=== PATIENT | female | born 1925 | race Caucasian/White ===

== ENCOUNTER 2016-09-04 10:42 | Outpatient (RCR) | payer MEDICARE, OTHER ==
--- OUTSIDE RECORDS SUMMARY | 2016-07-03 12:38 | XMS REPORT | Continuity of Care Document ---
Author Author [facility] Organization [facility] Address Unknown Phone Unavailable Care Team Providers Care Online Publisher Name Role Phone NAYANA MARTINEZ MD PCP Insurance Providers Payer Name Policy Number Subscriber Name Relationship [employer] Medicare [id number] Kera Reynolds 20 Self / Same As Patient [employer] [id number] Kera Reynolds 20 Self / Same As Patient Advance Directives Directive Response Recorded Date/Time Advance Directives Yes 01/03/13 9:15am Organ Donor Yes 01/03/13 9:15am Problems No problem information available. Medications Current Home Medications Medication Dose Units Route Directions Days/Qty Instructions Start Date Warfarin Sodium 5 Mg 5 Mg Oral Daily 04/02/11 Potassium Chloride 20 Meq 20 Meq Oral Daily 04/02/11 Furosemide 40 Mg 40 Mg Oral Daily 04/02/11 Aspirin 81 Mg 81 Mg Oral Daily 04/02/11 Pramipexole Di-Hcl 0.5 Mg 1 Mg Oral Daily 04/02/11 Hydroxyurea 500 Mg 1,000 Mg Oral M Thu, . 04/02/11 Hydroxyurea 500 Mg 500 Mg Oral Thu, , Sat,Sun , Thu, Thu Sat, Sun 04/02/11 [Diego Red Fish Oil] 600 Mg Oral Daily 04/02/11 Digoxin (Lanoxin) 125 Mcg 0.5 Each Oral Daily 12/31/12 Cholecalciferol 2,000 Unit 2,000 Unit Oral 12/31/12 Spironolactone 25 Mg 25 Mg Oral 12/31/12 Metoprolol Tartrate (Lopressor) 100 Mg 1 Each Oral Twice A Day 12/31 Past Home Medications Medication Directions Ordered Status Bisoprolol Fumarate/Hctz 1 Each Tablet, 1 Each Oral Daily 04/02/11 Discontinued Warfarin Sodium 2.5 Mg Tab, 2.5 Mg Oral Sututhsa@18 04/02/11 Discontinued Losartan Potassium 100 Mg Tablet, 100 Mg Oral Daily 04/02/11 Discontinued Estrogens Conjugated 0.625 Mg Tablet, 0.625 Mg Oral Daily 04/02/11 Discontinued [Diego Red Iron] , 1200 Mg Oral Twice A Day 04/02/11 Discontinued Ibandronate Sodium 150 Mg Tablet, 150 Mg Oral As Directed 04/02/11 Discontinued Amlodipine Besylate (Norvasc 5 Mg) 5 Mg Tablet, 5 Mg Oral Daily 04/02/11 Discontinued Social History Social History Problem Response Recorded Date/Time Recent Foreign Travel [place] 02/20/2016 9:25am Hospital Discharge Instructions Current inpatient/outpatient. Discharge instructions are currently unavailable. Plan of Care Prescriptions Functional Status No functional status results. Allergies, Adverse Reactions, Alerts Allergen Type Severity Reaction Status Last Updated Meperidine Adverse Reaction Mild NAUSEA Active 11/15/08 Immunizations No immunization records. Vital Signs No known vital signs results. Results Laboratory Results Test Name Result Units Flags Reference Collection Date/Time Result Date/ Time Comments White Blood Count 4.8 10^3/uL 4.3-11.0 04/23/2016 9:41am 04/23/2016 9: 48am Red Blood Count 3.51 10^6/uL L 4.35-5.85 04/23/2016 9:41am 04/23/2016 9: 48am Hemoglobin 12.2 G/DL 11.5-16.0 04/23/2016 9:41am 04/23/2016 9:48am Hematocrit 37 % 35-52 04/23/2016 9:41am 04/23/2016 9:48am Mean Corpuscular Volume 105 FL H 80-99 04/23/2016 9:41am 04/23/2016 9: 48am Mean Corpuscular Hemoglobin 35 PG H 25-34 04/23/2016 9:41am 04/23/2016 9: 48am Mean Corpuscular Hemoglobin Concent 33 G/DL 32-36 04/23/2016 9:41am 9:48am Red Cell Distribution Width 14.9 % H 10.0-14.5 04/23/2016 9:2015 9:48am Platelet Count 372 10^3/uL 130-400 04/23/2016 9:04/23/2016 9:48am Mean Platelet Volume 9.2 FL 7.4-10.4 04/23/2016 9:04/23/2016 9: 48am Neutrophils (%) (Auto) 76 % H 42-75 04/23/2016 9:04/23/2016 9:48am Lymphocytes (%) (Auto) 12 % 12-44 04/23/2016 9:04/23/2016 9:48am Monocytes (%) (Auto) 10 % 0-12 04/23/2016 9:04/23/2016 9:48am Eosinophils (%) (Auto) 2 % 0-10 04/23/2016 9:04/23/2016 9:48am Basophils (%) (Auto) 0 % 0-10 04/23/2016 9:04/23/2016 9:48am Neutrophils # (Auto) 3.6 X 10^3 1.8-7.8 04/23/2016 9:04/23/2016 9: 48am Lymphocytes # (Auto) 0.6 X 10^3 L 1.0-4.0 04/23/2016 9:04/23/2016 9: 48am Monocytes # (Auto) 0.5 X 10^3 0.0-1.0 04/23/2016 9:04/23/2016 9: 48am Eosinophils # (Auto) 0.1 10^3/uL 0.0-0.3 04/23/2016 9:04/23/2016 9 :48am Basophils # (Auto) 0.0 10^3/uL 0.0-0.1 04/23/2016 9:04/23/2016 9: 48am Sodium Level 132 MMOL/L L 135-145 04/23/2016 9:04/23/2016 11:42am Potassium Level 4.4 MMOL/L 3.6-5.0 04/23/2016 9:04/23/2016 11: 42am Chloride Level 100 MMOL/L 98-107 04/23/2016 9:04/23/2016 11:42am Carbon Dioxide Level 24 MMOL/L 21-32 04/23/2016 9:4104/23/2016 11: 42am Anion Gap 8 MMOL/L 5-14 04/23/2016 9:4104/23/2016 11:42am Blood Urea Nitrogen 19 MG/DL H 7-18 04/23/2016 9:41am 04/23/2016 11:42am Creatinine 1.03 MG/DL 0.60-1.30 04/23/2016 9:4104/23/2016 11:42am BUN/Creatinine Ratio 18 04/23/2016 9:4104/23/2016 11:42am Estimat Glomerular Filtration Rate 51 04/23/2016 9:4104/23/2016 11:42am GFR INTERPRETIVE DATA UNITS FOR ESTIMATED GFR (eGFR): mL/min/1.73 M2 REFERENCE RANGE FOR ESTIMATED GFR (eGFR) eGFR NORMAL eGFR >60 MODERATELY DECREASED eGFR 30-59 SEVERLY DECREASED eGFR 15-29 KIDNEY FAILURE <15 (OR DIALYSIS) Glucose Level 95 MG/DL 70-105 04/23/2016 9:4104/23/2016 11:42am Calcium Level 9.3 MG/DL 8.5-10.1 04/23/2016 9:4104/23/2016 11:42am Total Bilirubin 0.9 MG/DL 0.1-1.0 04/23/2016 9:41am 04/23/2016 11:42am Alkaline Phosphatase 90 U/L 40-136 04/23/2016 9:41am 04/23/2016 11: 42am Aspartate Amino Transf (AST/SGOT) 43 U/L H 5-34 04/23/2016 9:41am 2015 11:42am Alanine Aminotransferase (ALT/SGPT) 31 U/L 0-55 04/23/2016 9:4104/23 11:42am Lactate Dehydrogenase 315 U/L H 125-220 04/23/2016 9:4104/23/2016 11: 42am Total Protein 7.1 G/DL 6.4-8.2 04/23/2016 9:41am 04/23/2016 11:42am Albumin 4.1 G/DL 3.2-4.5 04/23/2016 9:41am 04/23/2016 11:42am Ghzy-9-Gggwkpllztuak 4.42 mg/L H 0.00-1.85 04/23/2016 9:41am 04/24/2016 8 :37am Test performed at [facility], CLIA# [id number] [address] [place] [address] Pending Laboratory Results Test Name Collection Date/Time Procedures No known history of procedures. Encounters Encounter Location Arrival/Admit Date Discharge/Depart Date Attending Provider Registered Clinic [facility] 04/23/16 9:45am NAYANA MARTINEZ MD Discharged Recurring [facility] 04/23/16 9:29am 11:59pm RELL COLEMAN MD
[2016-07-03 13:14] LABS: BASOPHILS % (AUTO) 0 % (0-10); EOSINOPHILS # (AUTO) 0.1 10^3/uL (0.0-0.3); EOSINOPHILS % (AUTO) 3 % (0-10); LYMPHOCYTES # (AUTO) 0.8 X 10^3 (1.0-4.0); LYMPHOCYTES % (AUTO) 19 % (12-44); MEAN CORPUSCULAR HEMOGLOBIN 36 PG (25-34); MEAN CORPUSCULAR HGB CONC 35 G/DL (32-36); MEAN CORPUSCULAR VOLUME 104 FL (80-99); MEAN PLATELET VOLUME 9.5 FL (7.4-10.4); MONOCYTES # (AUTO) 0.3 X 10^3 (0.0-1.0); MONOCYTES % (AUTO) 8 % (0-12); NEUTROPHILS # (AUTO) 2.9 X 10^3 (1.8-7.8); NEUTROPHILS % (AUTO) 70 % (42-75); PLATELET COUNT 381 10^3/uL (130-400); RED BLOOD COUNT 3.52 10^6/uL (4.35-5.85); RED CELL DISTRIBUTION WIDTH 15.7 % (10.0-14.5); WHITE BLOOD COUNT 4.2 10^3/uL (4.3-11.0)
[2016-07-03 13:35] LABS: ALBUMIN 4.2 G/DL (3.2-4.5); BILIRUBIN,TOTAL 0.8 MG/DL (0.1-1.0); CALCIUM 9.7 MG/DL (8.5-10.1); CREATININE SERUM 1.25 MG/DL (0.60-1.30); POTASSIUM 4.7 MMOL/L (3.6-5.0); TOTAL PROTEIN 7.5 G/DL (6.4-8.2)
[2016-09-04 10:58] LABS: BASOPHILS % (AUTO) 0 % (0-10); EOSINOPHILS # (AUTO) 0.2 10^3/uL (0.0-0.3); EOSINOPHILS % (AUTO) 3 % (0-10); LYMPHOCYTES # (AUTO) 0.7 X 10^3 (1.0-4.0); LYMPHOCYTES % (AUTO) 12 % (12-44); MEAN CORPUSCULAR HEMOGLOBIN 36 PG (25-34); MEAN CORPUSCULAR HGB CONC 34 G/DL (32-36); MEAN CORPUSCULAR VOLUME 107 FL (80-99); MEAN PLATELET VOLUME 9.3 FL (7.4-10.4); MONOCYTES # (AUTO) 0.4 X 10^3 (0.0-1.0); MONOCYTES % (AUTO) 8 % (0-12); NEUTROPHILS # (AUTO) 4.3 X 10^3 (1.8-7.8); NEUTROPHILS % (AUTO) 77 % (42-75); PLATELET COUNT 480 10^3/uL (130-400); RED BLOOD COUNT 3.44 10^6/uL (4.35-5.85); RED CELL DISTRIBUTION WIDTH 14.3 % (10.0-14.5); WHITE BLOOD COUNT 5.5 10^3/uL (4.3-11.0)
[2016-09-04 12:05] LABS: ALBUMIN 4.3 G/DL (3.2-4.5); BILIRUBIN,TOTAL 0.8 MG/DL (0.1-1.0); CALCIUM 9.7 MG/DL (8.5-10.1); CREATININE SERUM 0.93 MG/DL (0.60-1.30); POTASSIUM 4.7 MMOL/L (3.6-5.0); TOTAL PROTEIN 7.7 G/DL (6.4-8.2)
== END 2016-10-01 | disposition home or self-care (01) ==
LOC: ONC 10:42
PROVIDERS: ATTEND Internal Medicine Hematology & Oncology
DX: D69.49 Other primary thrombocytopenia (principal); I10 Essential (primary) hypertension; I48.91 Unspecified atrial fibrillation; Z95.2 Presence of prosthetic heart valve; Z79.01 Long term (current) use of anticoagulants; Z79.899 Other long term (current) drug therapy
CPT/HCPCS: 36415; 80053; 82232; 83615; 85025; 99213

== ENCOUNTER → 2016-09-04 | Outpatient (CLI) | payer MEDICARE, OTHER ==
[~2016-09-04] MED LIST: AMLO5TAB2 PO; ASP81TEC PO; BISO1TAB8 PO; CHOL2000 PO; DIGO125T PO; EST.625T PO; FRSM40T PO; HYDR500C PO; IBAN150T5 PO; LOSA100T7 PO; MEGA RED FISH OIL PO; METO100T2 PO; POTA20TA15 PO; PRAM0.5T4 PO; SPIR25TA3 PO; WRF2.5T PO; WRF5T PO; [UNRECOGNIZED DRUG - OTHER] PO
--- OUTSIDE RECORDS SUMMARY | 2016-09-04 11:00 | XMS REPORT | Continuity of Care Document ---
Author Author [facility] Organization [facility] Address Unknown Phone Unavailable Care Team Providers Care Interactive Media Marketing Director Name Role Phone NAYANA MARTINEZ MD PCP Insurance Providers Payer Name Policy Number Subscriber Name Relationship [employer] Medicare [id number] Kera Reynolds 20 Self / Same As Patient [employer] [id number] Kera Reynolds 20 Self / Same As [...] 4.1 G/DL 3.2-4.5 04/23/2016 9:41am 04/23/2016 11:42am Xcdu-0-Ntzqlogszmdnk 4.42 mg/L H 0.00-1.85 04/23/2016 9:41am 04/24/2016 8 :37am Test performed at [facility], CLIA# [id number] [address] [place] [address] Pending Laboratory Results Test Name Collection Date/Time Procedures No known history of procedures. Encounters Encounter Location Arrival/Admit Date Discharge/Depart Date Attending Provider Registered Clinic [facility] 04/23/16 9:45am NAYANA MARTINEZ MD Discharged Recurring [facility] 04/23/16 9:29am 11:59pm RELL COLEMAN MD
[2016-09-04 11:56] LABS: INR 1.4 (0.8-1.4); PROTHROMBIN TIME PATIENT 16.6 SEC (12.2-14.7)
== END ==
LOC: LAB 10:56
PROVIDERS: ATTEND Family Medicine
DX: I48.91 Unspecified atrial fibrillation (principal)
CPT/HCPCS: 36415; 85610

== ENCOUNTER 2017-01-06 09:40 | Outpatient (RCR) | payer MEDICARE, OTHER ==
[2016-11-12 10:10] LABS: BASOPHILS % (AUTO) 0 % (0-10); EOSINOPHILS # (AUTO) 0.2 10^3/uL (0.0-0.3); EOSINOPHILS % (AUTO) 5 % (0-10); LYMPHOCYTES # (AUTO) 0.4 X 10^3 (1.0-4.0); LYMPHOCYTES % (AUTO) 12 % (12-44); MEAN CORPUSCULAR HEMOGLOBIN 35 PG (25-34); MEAN CORPUSCULAR HGB CONC 34 G/DL (32-36); MEAN CORPUSCULAR VOLUME 104 FL (80-99); MEAN PLATELET VOLUME 9.4 FL (7.4-10.4); MONOCYTES # (AUTO) 0.4 X 10^3 (0.0-1.0); MONOCYTES % (AUTO) 11 % (0-12); NEUTROPHILS # (AUTO) 2.7 X 10^3 (1.8-7.8); NEUTROPHILS % (AUTO) 73 % (42-75); PLATELET COUNT 407 10^3/uL (130-400); RED BLOOD COUNT 3.55 10^6/uL (4.35-5.85); RED CELL DISTRIBUTION WIDTH 14.8 % (10.0-14.5); WHITE BLOOD COUNT 3.8 10^3/uL (4.3-11.0)
[2016-11-12 10:32] LABS: INR 1.8 (0.8-1.4); PROTHROMBIN TIME PATIENT 20.4 SEC (12.2-14.7)
[2016-11-12 10:42] LABS: ALBUMIN 4.1 G/DL (3.2-4.5); BILIRUBIN,TOTAL 0.9 MG/DL (0.1-1.0); CALCIUM 9.1 MG/DL (8.5-10.1); CREATININE SERUM 1.04 MG/DL (0.60-1.30); TOTAL PROTEIN 7.2 G/DL (6.4-8.2)
[2017-01-06 09:58] LABS: BASOPHILS % (AUTO) 0 % (0-10); EOSINOPHILS # (AUTO) 0.1 10^3/uL (0.0-0.3); EOSINOPHILS % (AUTO) 2 % (0-10); LYMPHOCYTES # (AUTO) 0.7 X 10^3 (1.0-4.0); LYMPHOCYTES % (AUTO) 14 % (12-44); MEAN CORPUSCULAR HEMOGLOBIN 36 PG (25-34); MEAN CORPUSCULAR HGB CONC 35 G/DL (32-36); MEAN CORPUSCULAR VOLUME 104 FL (80-99); MEAN PLATELET VOLUME 9.2 FL (7.4-10.4); MONOCYTES # (AUTO) 0.6 X 10^3 (0.0-1.0); MONOCYTES % (AUTO) 14 % (0-12); NEUTROPHILS # (AUTO) 3.2 X 10^3 (1.8-7.8); NEUTROPHILS % (AUTO) 70 % (42-75); PLATELET COUNT 334 10^3/uL (130-400); RED BLOOD COUNT 3.42 10^6/uL (4.35-5.85); RED CELL DISTRIBUTION WIDTH 15.1 % (10.0-14.5); WHITE BLOOD COUNT 4.6 10^3/uL (4.3-11.0)
[2017-01-06 10:41] LABS: ALBUMIN 4.1 G/DL (3.2-4.5); CALCIUM 9.2 MG/DL (8.5-10.1); CREATININE SERUM 0.98 MG/DL (0.60-1.30); POTASSIUM 5.8 MMOL/L (3.6-5.0); TOTAL PROTEIN 7.2 G/DL (6.4-8.2)
== END 2017-02-10 | disposition home or self-care (01) ==
LOC: ONC 09:40
PROVIDERS: ATTEND Internal Medicine Hematology & Oncology
DX: D47.3 Essential (hemorrhagic) thrombocythemia (principal); I11.0 Hypertensive heart disease with heart failure; I50.22 Chronic systolic (congestive) heart failure; I48.0 Paroxysmal atrial fibrillation; E87.1 Hypo-osmolality and hyponatremia; E87.5 Hyperkalemia; B02.9 Zoster without complications; Z95.2 Presence of prosthetic heart valve; Z79.01 Long term (current) use of anticoagulants; Z79.899 Other long term (current) drug therapy
CPT/HCPCS: 36415; 80053; 83615; 85025; 85610; 99213

== ENCOUNTER 2017-03-03 14:31 | Outpatient (RCR) | payer MEDICARE, OTHER ==
[2017-03-03 14:45] LABS: BASOPHILS % (AUTO) 0 % (0-10); EOSINOPHILS # (AUTO) 0.2 10^3/uL (0.0-0.3); EOSINOPHILS % (AUTO) 3 % (0-10); LYMPHOCYTES # (AUTO) 0.7 X 10^3 (1.0-4.0); LYMPHOCYTES % (AUTO) 14 % (12-44); MEAN CORPUSCULAR HEMOGLOBIN 36 PG (25-34); MEAN CORPUSCULAR HGB CONC 34 G/DL (32-36); MEAN CORPUSCULAR VOLUME 103 FL (80-99); MEAN PLATELET VOLUME 9.7 FL (7.4-10.4); MONOCYTES # (AUTO) 0.5 X 10^3 (0.0-1.0); MONOCYTES % (AUTO) 9 % (0-12); NEUTROPHILS # (AUTO) 3.9 X 10^3 (1.8-7.8); NEUTROPHILS % (AUTO) 74 % (42-75); PLATELET COUNT 436 10^3/uL (130-400); RED BLOOD COUNT 3.41 10^6/uL (4.35-5.85); RED CELL DISTRIBUTION WIDTH 14.4 % (10.0-14.5); WHITE BLOOD COUNT 5.3 10^3/uL (4.3-11.0)
[2017-03-03 15:00] LABS: ALANINE AMINOTRANSFERASE 20 U/L (0-55); ANION GAP 7 MMOL/L (5-14); ASPARTATE AMINO TRANSFERASE 30 U/L (5-34); BILIRUBIN,TOTAL 0.7 MG/DL (0.1-1.0); BLOOD UREA NITROGEN 18 MG/DL (7-18); BUN/CREATININE RATIO 21; CALCIUM 9.2 MG/DL (8.5-10.1); CARBON DIOXIDE 24 MMOL/L (21-32); CHLORIDE 103 MMOL/L (98-107); CREATININE SERUM 0.86 MG/DL (0.60-1.30); GFR ESTIMATED > 60; GLUCOSE 90 MG/DL (70-105); LACTATE DEHYDROGENASE 255 U/L (125-220); POTASSIUM 4.4 MMOL/L (3.6-5.0); SODIUM 134 MMOL/L (135-145); TOTAL PROTEIN 7.3 GM/DL (6.4-8.2)
[2017-03-03 15:23] LABS: THYROID STIMULATING HORMONE 1.39 UIU/ML (0.35-4.94)
[2017-03-04 07:40] LABS: IMMUNOGLOBULIN IGA 198 mg/dL (71-263); IMMUNOGLOBULIN IGG 1214 mg/dL (672-1680)
[2017-03-04 08:32] LABS: IMMUNOGLOBULIN IGM 279 mg/dL (47-209)
[2017-05-13] MEDS ORDERED: MELA1TAB8 PO (08:38)
[2017-05-13] MEDS ORDERED: ENAL2.5T PO (08:38)
[2017-05-13] MEDS ORDERED: CARB15DR3 OU (08:38)
[2017-05-13] MEDS ORDERED: HYDR500C2 PO ×2 (08:38)
[2017-05-13] MEDS ORDERED: [UNRECOGNIZED DRUG - OTHER] PO (08:38)
[2017-05-13] MEDS ORDERED: ARCTIC RUBY OIL PO (08:38)
[2017-05-13] MEDS ORDERED: METO-274 PO (08:38)
[2017-05-13] MEDS ORDERED: MAGN400T6 PO (08:38)
[2017-05-13] MEDS ORDERED: PRAM1TAB2 PO (08:38)
[2017-05-13] MEDS ORDERED: ASPI-983 PO (08:38)
[2017-05-13] MEDS ORDERED: NITR0.4T SL (08:38)
[2017-05-13] MEDS ORDERED: DIGO125T PO (08:38)
[2017-05-13] MEDS ORDERED: CALC100T2 PO (08:38)
[2017-05-13] MEDS ORDERED: FURO40TA4 PO (08:38)
[2017-05-13] MEDS ORDERED: SPIR25TA PO (08:38)
[2017-05-13] MEDS ORDERED: WARF-48 PO ×2 (08:38)
[2017-05-13] MEDS ORDERED: PHEN95TA30 PO (08:38)
== END 2017-05-12 11:01 | disposition home or self-care (01) ==
LOC: ONC 14:31
PROVIDERS: ATTEND Internal Medicine Hematology & Oncology
DX: D47.3 Essential (hemorrhagic) thrombocythemia (principal); I11.0 Hypertensive heart disease with heart failure; I50.22 Chronic systolic (congestive) heart failure; I48.0 Paroxysmal atrial fibrillation; E87.1 Hypo-osmolality and hyponatremia; E87.5 Hyperkalemia; B02.9 Zoster without complications; Z95.2 Presence of prosthetic heart valve; Z79.01 Long term (current) use of anticoagulants; Z79.899 Other long term (current) drug therapy
CPT/HCPCS: 36415; 80053; 82784; 83615; 84439; 84443; 85025; 99213

== ENCOUNTER → 2017-04-01 | Outpatient (CLI) | payer MEDICARE, OTHER ==
[~2017-04-01] MED LIST changes: +CATHETER FLUSH 10 ML SYR IV PRN; +REGADENOSON 0.4 MG/5 ML SYR (LEXISCAN) IV ONE
== END ==
LOC: CARD 09:30
PROVIDERS: ATTEND Physician Assistant
DX: E78.2 Mixed hyperlipidemia (principal); I10 Essential (primary) hypertension; I48.0 Paroxysmal atrial fibrillation; I49.5 Sick sinus syndrome; I08.1 Rheumatic disorders of both mitral and tricuspid valves
CPT/HCPCS: 93306

== ENCOUNTER → 2017-04-29 | Outpatient (CLI) | payer MEDICARE, OTHER ==
[~2017-04-29] MED LIST changes: +ARCTIC RUBY OIL PO; +ASPI-983 PO; +CALC100T2 PO; +CARB15DR3 OU; +ENAL2.5T PO; +FURO40TA4 PO; +HYDR500C2 PO; +MAGN400T6 PO; +MELA1TAB8 PO; +METO-395 PO; +NITR0.4T SL; +PHEN95TA30 PO; +PRAM1TAB2 PO; +SPIR25TA PO; +WARF-48 PO; +[UNRECOGNIZED DRUG - OTHER] PO
[2017-04-29 13:38] VITALS: BP 156/79
--- NOTE | 2017-04-30 09:26 | STRESS TEST ---
DATE OF SERVICE: 04/29/2017 LEXISCAN MYOVIEW STRESS TEST REPORT: REFERRING PHYSICIAN: Dr. Fernanda Eng. Baseline heart rate is 72. Baseline blood pressure 156/79. Baseline EKG is atrial fibrillation with no ischemic changes. In summary, the patient was injected with 10.85 mCi of technetium-99 Myoview and the resting images were obtained. Then, the patient received 0.4 mg of Lexiscan followed by 30.7 mCi of technetium-99 Myoview. Throughout the test, there were no EKG changes. The resting and stress images were reviewed and compared in the short axis, horizontal long axis, and vertical long axis views. Review of the images showed breast attenuation affecting the quality of the images, there is mild decreased uptake at the mid to apical anterior wall with subtle reversibility. SSS is 5, SDS 5, TID value 1.01. On the gated images, the left ventricle appeared to be normal size with normal contractility, calculated ejection fraction 80%. CONCLUSION: 1. The patient tolerated Lexiscan well. 2. Breast attenuation affecting the quality of the images with questionable mild ischemia involving the mid to apical anterior wall and anterolateral wall. 3. Normal left ventricular size with normal contractility, calculated ejection fraction 80%. Job ID: [id number] DocumentID: [id number] Dictated Date: 04/29/2017 16:01:11 Tour Guide Date: 04/29/2017 17:13:32 Dictated By: BETTY RIVERA MD
== END ==
LOC: CARD 11:16
PROVIDERS: ATTEND Physician Assistant
DX: E78.2 Mixed hyperlipidemia (principal); I10 Essential (primary) hypertension; I48.0 Paroxysmal atrial fibrillation; I49.5 Sick sinus syndrome
CPT/HCPCS: 78452; 93017

== ENCOUNTER 2017-05-12 12:22 | Outpatient (RCR) | payer MEDICARE, OTHER ==
[~2017-05-12 12:22] MED LIST changes: -ARCTIC RUBY OIL PO; -ASPI-983 PO; -CALC100T2 PO; -CARB15DR3 OU; -CATHETER FLUSH 10 ML SYR IV PRN; -ENAL2.5T PO; -FURO40TA4 PO; -HYDR500C2 PO; -MAGN400T6 PO; -MELA1TAB8 PO; -METO-395 PO; -NITR0.4T SL; -PHEN95TA30 PO; -PRAM1TAB2 PO; -REGADENOSON 0.4 MG/5 ML SYR (LEXISCAN) IV ONE; -SPIR25TA PO; -WARF-48 PO; -[UNRECOGNIZED DRUG - OTHER] PO
[2017-05-12 13:07] LABS: BASOPHILS % (AUTO) 0 % (0-10); EOSINOPHILS # (AUTO) 0.1 10^3/uL (0.0-0.3); EOSINOPHILS % (AUTO) 2 % (0-10); LYMPHOCYTES # (AUTO) 0.7 X 10^3 (1.0-4.0); LYMPHOCYTES % (AUTO) 14 % (12-44); MEAN CORPUSCULAR HEMOGLOBIN 34 PG (25-34); MEAN CORPUSCULAR HGB CONC 33 G/DL (32-36); MEAN CORPUSCULAR VOLUME 105 FL (80-99); MEAN PLATELET VOLUME 9.4 FL (7.4-10.4); MONOCYTES # (AUTO) 0.5 X 10^3 (0.0-1.0); MONOCYTES % (AUTO) 8 % (0-12); NEUTROPHILS # (AUTO) 4.1 X 10^3 (1.8-7.8); NEUTROPHILS % (AUTO) 76 % (42-75); PLATELET COUNT 464 10^3/uL (130-400); RED BLOOD COUNT 3.31 10^6/uL (4.35-5.85); RED CELL DISTRIBUTION WIDTH 14.5 % (10.0-14.5); WHITE BLOOD COUNT 5.4 10^3/uL (4.3-11.0)
[2017-05-12 13:53] LABS: ALANINE AMINOTRANSFERASE 21 U/L (0-55); ALBUMIN 3.9 GM/DL (3.2-4.5); ANION GAP 9 MMOL/L (5-14); ASPARTATE AMINO TRANSFERASE 32 U/L (5-34); BILIRUBIN,TOTAL 0.8 MG/DL (0.1-1.0); BLOOD UREA NITROGEN 17 MG/DL (7-18); BUN/CREATININE RATIO 20; CALCIUM 9.1 MG/DL (8.5-10.1); CARBON DIOXIDE 25 MMOL/L (21-32); CHLORIDE 98 MMOL/L (98-107); CREATININE SERUM 0.83 MG/DL (0.60-1.30); GFR ESTIMATED > 60; GLUCOSE 112 MG/DL (70-105); LACTATE DEHYDROGENASE 241 U/L (125-220); POTASSIUM 3.9 MMOL/L (3.6-5.0); SODIUM 132 MMOL/L (135-145); TOTAL PROTEIN 6.6 GM/DL (6.4-8.2)
[2017-05-13] MEDS ORDERED: ENAL2.5T PO (08:38)
[2017-05-13] MEDS ORDERED: HYDR500C2 PO ×2 (08:38)
[2017-05-13] MEDS ORDERED: PHEN95TA30 PO (08:38)
[2017-05-13] MEDS ORDERED: CARB15DR3 OU (08:38)
[2017-05-13] MEDS ORDERED: DIGO125T PO (08:38)
[2017-05-13] MEDS ORDERED: MAGN400T6 PO (08:38)
[2017-05-13] MEDS ORDERED: SPIR25TA PO (08:38)
[2017-05-13] MEDS ORDERED: ARCTIC RUBY OIL PO (08:38)
[2017-05-13] MEDS ORDERED: CALC100T2 PO (08:38)
[2017-05-13] MEDS ORDERED: PRAM1TAB2 PO (08:38)
[2017-05-13] MEDS ORDERED: MELA1TAB8 PO (08:38)
[2017-05-13] MEDS ORDERED: METO-274 PO (08:38)
[2017-05-13] MEDS ORDERED: FURO40TA4 PO (08:38)
[2017-05-13] MEDS ORDERED: WARF-48 PO ×2 (08:38)
[2017-05-13] MEDS ORDERED: ASPI-983 PO (08:38)
[2017-05-13] MEDS ORDERED: [UNRECOGNIZED DRUG - OTHER] PO (08:38)
[2017-05-13] MEDS ORDERED: NITR0.4T SL (08:38)
== END 2017-05-20 10:03 | disposition home or self-care (01) ==
LOC: ONC 12:22
PROVIDERS: ATTEND Internal Medicine Hematology & Oncology
DX: D47.3 Essential (hemorrhagic) thrombocythemia (principal); I11.0 Hypertensive heart disease with heart failure; I50.22 Chronic systolic (congestive) heart failure; I48.0 Paroxysmal atrial fibrillation; E87.1 Hypo-osmolality and hyponatremia; E87.5 Hyperkalemia; B02.9 Zoster without complications; Z95.2 Presence of prosthetic heart valve; Z79.01 Long term (current) use of anticoagulants; Z79.899 Other long term (current) drug therapy
CPT/HCPCS: 36415; 80053; 83615; 85025; 99213

== ENCOUNTER 2017-05-13 06:52 | Day surgery (SDC) | payer MEDICARE, OTHER ==
[2017-05-13] VITALS (10 sets, daily range): BP systolic 110–170; BP diastolic 63–82
[~2017-05-13] VITALS: Ht 172.7 cm; Wt 65.8 kg
[2017-05-13] MEDS ORDERED: NS IV 1000 ML 1,000 ML ONE (06:53)
[2017-05-13] MEDS ORDERED: HEParin (CATH LAB) 2,000 ML IV ONE (06:53)
--- OUTSIDE RECORDS SUMMARY | 2017-05-13 06:58 | XMS REPORT | Continuity of Care Document ---
Author Author [facility] Address Unknown Phone Unavailable Allergies Active Description Code Type Severity Reaction Onset Reported/Identified Relationship to Patient Clinical Status Yes meperidine [id number] Drug Allergy Mild NAUSEA 11/15/2008 Medications Problems Date Dx Coded Attending Type Code Diagnosis Diagnosed By 04/02/2011 Ot 272.4 04/02/2011 Ot 397.0 04/02/2011 Ot 401.9 04/02/2011 Ot 424.0 04/02/2011 Ot 427.81 04/02/2011 Ot 786.09 04/02/2011 Ot 794.30 04/02/2011 Ot V45.01 09/14/2012 Ot 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 THROMBOCYTHEMIA 09/14/2012 Ot V58.61 ANTICOAGULANTS,LT,CURRENT USE 01/11/2013 RELL COLEMAN MD Ot 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 THROMBOCYTHEMIA 01/11/2013 RELL COLEMAN MD Ot 401.9 HYPERTENSION NOS 01/11/2013 RELL COLEMAN MD Ot 424.0 MITRAL VALVE DISORDER 01/11/2013 RELL COLEMAN MD Ot 427.31 ATRIAL FIBRILLATION 01/11/2013 RELL COLEMAN MD Ot V58.61 ANTICOAGULANTS,LT,CURRENT USE 01/11/2013 RELL COLEMAN MD Ot V58.69 OTH MED,LT,CURRENT USE 05/31/2013 RELL COLEMAN MD Ot 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 THROMBOCYTHEMIA 05/31/2013 RELL COLEMAN MD Ot 401.9 HYPERTENSION NOS 05/31/2013 RELL COLEMAN MD Ot 424.0 MITRAL VALVE DISORDER 05/31/2013 RELL COLEMAN MD Ot 427.31 ATRIAL FIBRILLATION 05/31/2013 RELL COLEMAN MD Ot V58.61 ANTICOAGULANTS,LT,CURRENT USE 05/31/2013 RELL COLEMAN MD Ot V58.69 OTH MED,LT,CURRENT USE 10/03/2013 RELL COLEMAN MD Ot 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 THROMBOCYTHEMIA 10/03/2013 RELL COLEMAN MD Ot 401.9 HYPERTENSION NOS 10/03/2013 [place] MD, RELL K Ot 424.0 MITRAL VALVE DISORDER 10/03/2013 RELL COLEMAN MD Ot 427.31 ATRIAL FIBRILLATION 10/03/2013 RELL COLEMAN MD Ot V58.61 ANTICOAGULANTS,LT,CURRENT USE 10/03/2013 RELL COLEMAN MD Ot V58.69 OTH MED,LT,CURRENT USE 02/22/2014 RELL COLEMAN MD Ot 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 THROMBOCYTHEMIA 02/22/2014 RELL COLEMAN MD Ot 401.9 HYPERTENSION NOS 02/22/2014 RELL COLEMAN MD Ot 424.0 MITRAL VALVE DISORDER 02/22/2014 RELL COLEMAN MD Ot 427.31 ATRIAL FIBRILLATION 02/22/2014 RELL COLEMAN MD Ot V58.61 ANTICOAGULANTS,LT,CURRENT USE 02/22/2014 RELL COLEMAN MD Ot V58.69 OTH MED,LT,CURRENT USE 06/20/2014 RELL COLEMAN MD Ot 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 THROMBOCYTHEMIA 06/20/2014 RELL COLEMAN MD Ot 401.9 HYPERTENSION NOS 06/20/2014 RELL COLEMAN MD Ot 424.0 MITRAL VALVE DISORDER 06/20/2014 RELL COLEMAN MD Ot 427.31 ATRIAL FIBRILLATION 06/20/2014 RELL COLEMAN MD Ot V58.61 ANTICOAGULANTS,LT,CURRENT USE 06/20/2014 RELL COLEMAN MD Ot V58.69 OTH MED,LT,CURRENT USE 07/18/2014 RELL COLEMAN MD Ot 238.71 07/18/2014 RELL COLEMAN MD Ot 401.9 07/18/2014 RELL COLEMAN MD Ot 424.0 07/18/2014 RELL COLEMAN MD Ot 427.31 07/18/2014 RELL COLEMAN MD Ot V58.61 07/18/2014 [place] LEGGETT, RELL K Ot V58.69 07/19/2014 RELL COLEMAN MD K Ot 238.71 07/19/2014 [place] LEGGETT, RELL Abernathy Ot 401.9 07/19/2014 RELL COLEMAN MD Ot 424.0 07/19/2014 RELL COLEMAN MD Ot 427.31 07/19/2014 [place] LEGGETT, RELL K Ot V58.61 07/19/2014 [place] LEGGETT, RELL Abernathy Ot V58.69 08/23/2014 [place] LEGGETT, RELL K Ot 238.71 08/23/2014 RELL COLEMAN MD Ot 401.9 08/23/2014 RELL COLEMAN MD K Ot 424.0 08/23/2014 [place] LEGGETT, RELL Abernathy Ot 427.31 08/23/2014 [place] LEGGETT, RELL Abernathy Ot V58.61 08/23/2014 [place] LEGGETT, RELL Abernathy Ot V58.69 09/13/2014 JUAN LEGGETT, NAYANA Santana Ot V58.61 09/13/2014 JUAN LEGGETT, NAYANA A Ot V58.83 09/13/2014 Ot V76.12 09/13/2014 Ot V76.12 09/13/2014 Ot 238.71 09/13/2014 Ot 401.9 09/13/2014 Ot 427.31 09/13/2014 Ot V58.61 09/13/2014 Ot V58.66 09/13/2014 Ot V58.69 09/13/2014 Ot 238.71 09/13/2014 Ot 238.71 09/13/2014 Ot 401.9 09/13/2014 Ot 427.31 09/13/2014 Ot V58.61 09/13/2014 Ot V58.69 09/13/2014 Ot 427.31 09/13/2014 Ot V58.61 09/13/2014 Ot 238.71 09/13/2014 Ot 401.9 09/13/2014 Ot 427.31 09/13/2014 Ot V58.61 09/13/2014 Ot V58.69 09/13/2014 Ot 238.71 09/13/2014 Ot 401.9 09/13/2014 Ot 427.31 09/13/2014 Ot V58.61 09/13/2014 Ot V58.69 09/13/2014 Ot 238.71 09/13/2014 Ot 401.9 09/13/2014 Ot 427.31 09/13/2014 Ot V58.61 09/13/2014 Ot V58.69 09/13/2014 Ot 397.0 09/13/2014 Ot 401.9 09/13/2014 Ot 416.8 09/13/2014 Ot 424.0 09/13/2014 Ot 786.09 09/13/2014 Ot 238.71 09/13/2014 Ot 401.9 09/13/2014 Ot 427.31 09/13/2014 Ot V58.61 09/13/2014 Ot V58.69 09/13/2014 Ot 238.71 09/13/2014 Ot 401.9 09/13/2014 Ot 427.31 09/13/2014 Ot V58.69 09/13/2014 Ot 238.71 09/13/2014 Ot 424.0 09/13/2014 Ot 427.31 09/13/2014 Ot V58.61 09/13/2014 Ot V58.69 09/13/2014 Ot 238.71 09/13/2014 Ot 401.9 09/13/2014 Ot 424.0 09/13/2014 Ot 427.31 09/13/2014 Ot V04.81 09/13/2014 Ot V58.61 09/13/2014 Ot V58.69 09/13/2014 Ot 238.71 09/13/2014 Ot 401.9 09/13/2014 Ot 424.0 09/13/2014 Ot 427.31 09/13/2014 Ot V58.61 09/13/2014 Ot V58.69 09/13/2014 Ot 238.71 09/13/2014 Ot 401.9 09/13/2014 Ot 424.0 09/13/2014 Ot 427.31 09/13/2014 Ot V58.61 09/13/2014 Ot V58.69 09/13/2014 Ot 238.71 09/13/2014 Ot 401.9 09/13/2014 Ot 424.0 09/13/2014 Ot 427.31 09/13/2014 Ot V58.61 09/13/2014 Ot V58.69 09/13/2014 Ot 396.3 09/13/2014 Ot 397.0 09/13/2014 Ot 401.9 09/13/2014 Ot 238.71 09/13/2014 Ot 401.9 09/13/2014 Ot 424.0 09/13/2014 Ot 427.31 09/13/2014 Ot V58.61 09/13/2014 Ot V58.69 09/13/2014 Ot 427.31 09/13/2014 Ot 238.71 09/13/2014 Ot 401.9 09/13/2014 Ot 424.0 09/13/2014 Ot 427.31 09/13/2014 Ot V58.61 09/13/2014 Ot V58.69 09/13/2014 Ot 397.0 09/13/2014 Ot 424.0 09/13/2014 Ot 428.0 09/13/2014 Ot V45.01 09/13/2014 Ot 427.31 09/13/2014 BETH ALEXANDER Ot 397.0 09/13/2014 DYLAN RESTREPO, BETH K Ot 424.0 09/13/2014 DYLAN PA, BETH K Ot 427.31 09/13/2014 DYLAN PA, BETH K Ot 428.0 09/13/2014 DYLAN PA, BETH K Ot 786.09 09/13/2014 DYLAN PA, BETH K Ot V45.01 09/13/2014 JUAN LEGGETT, NAYANA Santana Ot 427.31 09/13/2014 [place] LEGGETT, RELL Abernathy Ot 238.71 09/13/2014 [place] LEGGETT, RELL Abernathy Ot 401.9 09/13/2014 [place] LEGGETT, RELL Abernathy Ot 424.0 09/13/2014 [place] LEGGETT, RELL Abernathy Ot 427.31 09/13/2014 [place] LEGGETT, RELL Abernathy Ot V58.61 09/13/2014 [place] LEGGETT, RELL Abernathy Ot V58.69 09/13/2014 JUAN LEGGETT, NAYANA A Ot V58.61 09/13/2014 JUAN LEGGETT, NAYANA A Ot V58.83 09/13/2014 JUAN LEGGETT, NAYANA A Ot V58.61 09/13/2014 JUAN LEGGETT, NAYANA A Ot V58.83 09/13/2014 JUAN LEGGETT, NAYANA A Ot V58.61 09/13/2014 JUAN LEGGETT, NAYANA A Ot V58.83 10/03/2014 JUAN LEGGETT, NAYANA A Ot V58.61 10/03/2014 JUAN LEGGETT, NAYANA A Ot V58.83 10/16/2014 [place] LEGGETT, RELL Abernathy Ot 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 THROMBOCYTHEMIA 10/16/2014 [place] LEGGETT, RELL Abernathy Ot 401.9 HYPERTENSION NOS 10/16/2014 [place] LEGGETT, RELL Abernathy Ot 424.0 MITRAL VALVE DISORDER 10/16/2014 [place] LEGGETT, RELL Abernathy Ot 427.31 ATRIAL FIBRILLATION 10/16/2014 [place] LEGGETT, RELL Abernathy Ot V58.61 ANTICOAGULANTS,LT,CURRENT USE 10/16/2014 [place] LEGGETT, RELL Abernathy Ot V58.69 OTH MED,LT,CURRENT USE 01/12/2015 [place] LEGGETT, RELL Abernathy Ot 238.71 01/12/2015 [place] LEGGETT, RELL Abernathy Ot 401.9 01/12/2015 [place] LEGGETT, RELL Abernathy Ot 424.0 01/12/2015 [place] LEGGETT, RELL Abernathy Ot 427.31 01/12/2015 [place] LEGGETT, RELL Abernathy Ot V58.61 01/12/2015 [place] LEGGETT, RELL Abernathy Ot V58.69 02/05/2015 [place] LEGGETT, RELL Abernathy Ot 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 THROMBOCYTHEMIA 02/05/2015 [place] LEGGETT, RELL Abernathy Ot 401.9 HYPERTENSION NOS 02/05/2015 [place] LEGGETT, RELL Abernathy Ot 424.0 MITRAL VALVE DISORDER 02/05/2015 [place] LEGGETT, RELL Abernathy Ot 427.31 ATRIAL FIBRILLATION 02/05/2015 [place] LEGGETT, RELL Abernathy Ot V58.61 ANTICOAGULANTS,LT,CURRENT USE 02/05/2015 [place] LEGGETT, RELL Abernathy Ot V58.69 OTH MED,LT,CURRENT USE 03/14/2015 [place] LEGGETT, RELL Abernathy Ot 238.71 03/14/2015 [place] LEGGETT, RELL Abernathy Ot 401.9 03/14/2015 [place] LEGGETT, RELL Abernathy Ot 424.0 03/14/2015 [place] LEGGETT, RELL Abernathy Ot 427.31 03/14/2015 [place] LEGGETT, RELL bAernathy Ot V58.61 03/14/2015 [place] LEGGETT, RELL Abernathy Ot V58.69 04/11/2015 [place] LEGGETT, RELL Abernathy Ot 238.71 04/11/2015 [place] LEGGETT, RELL Michela Ot 401.9 04/11/2015 [place] LEGGETT, RELL Michela Ot 424.0 04/11/2015 [place] LEGGETT, RELL Abernathy Ot 427.31 04/11/2015 [place] LEGGETT, RELL Abernathy Ot V58.61 04/11/2015 [place] LEGGETT, RELL Abernathy Ot V58.69 04/18/2015 [place] LEGGETT, RELL Abernathy Ot 238.71 04/18/2015 [place] LEGGETT, RELL Michela Ot 401.9 04/18/2015 [place] LEGGETT, RELL Michela Ot 424.0 04/18/2015 [place] LEGGETT, RELL Abernathy Ot 427.31 04/18/2015 [place] LEGGETT, RELL K Ot V58.61 04/18/2015 [place] LEGGETT, RELL K Ot V58.69 04/18/2015 JUAN LEGGETT, NAYANA A Ot 427.31 04/20/2015 JUAN LEGGETT, NAYANA A Ot 427.31 05/08/2015 JUAN LEGGETT, NAYANA Santana Ot 427.31 05/15/2015 [place] LEGGETT, RELL Abernathy Ot 238.71 05/15/2015 [place] LEGGETT, RELL Michela Ot 401.9 05/15/2015 [place] LEGGETT, RELL Abernathy Ot 424.0 05/15/2015 [place] LEGGETT, RELL Abernathy Ot 427.31 05/15/2015 RELL COLEMAN MD Ot V58.61 05/15/2015 [place] LEGGETT, RELL Abernathy Ot V58.69 05/23/2015 [place] LEGGETT, RELL Abernathy Ot 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 THROMBOCYTHEMIA 05/23/2015 [place] LEGGETT, RELL Abernathy Ot 401.9 HYPERTENSION NOS 05/23/2015 [place] LEGGETT, RELL Abernathy Ot 424.0 MITRAL VALVE DISORDER 05/23/2015 RELL COLEMAN MD Ot 427.31 ATRIAL FIBRILLATION 05/23/2015 RELL COLEMAN MD Ot V58.61 ANTICOAGULANTS,LT,CURRENT USE 05/23/2015 RELL COLEMAN MD Ot V58.69 OTH MED,LT,CURRENT USE 07/16/2015 RELL COLEMAN MD Ot D69.49 07/16/2015 RELL COLEMAN MD Ot I10 07/16/2015 RELL COLEMAN MD Ot I48.91 07/16/2015 RELL COLEMAN MD Ot Z79.01 07/16/2015 RELL COLEMAN MD Ot Z79.899 07/16/2015 RELL COLEMAN MD Ot Z95.2 09/17/2015 RELL COLEMAN MD Ot D69.49 OTHER PRIMARY THROMBOCYTOPENIA 09/17/2015 RELL COLEMAN MD Ot I10 ESSENTIAL (PRIMARY) HYPERTENSION 09/17/2015 [place] LEGGETT, RELL Abernathy Ot I48.91 UNSPECIFIED ATRIAL FIBRILLATION 09/17/2015 [place] LEGGETT, RELL Abernathy Ot 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 09/17/2015 RELL COLEMAN MD Ot Z79.899 OTHER FPC (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 THERAPY 09/17/2015 [place] LEGGETT, RELL Abernathy Ot Z95.2 PRESENCE OF PROSTHETIC HEART VALVE 10/18/2015 [place] LEGGETT, RELL Abernathy Ot D69.49 10/18/2015 [place] LEGGETT, RELL Abernathy Ot I10 10/18/2015 [place] LEGGETT, RELL Abernathy Ot I48.91 10/18/2015 [place] LEGGETT, RELL Abernathy Ot Z79.01 10/18/2015 [place] LEGGETT, RELL Abernathy Ot Z79.899 10/18/2015 [place] LEGGETT, RELL Abernathy Ot Z95.2 10/31/2015 RELL COLEMAN MD Ot D69.49 10/31/2015 [place] LEGGETT, RELL Abernathy Ot I10 10/31/2015 [place] LEGGETT, RELL Abernathy Ot I48.91 10/31/2015 RELL COLEMAN MD Ot Z79.01 10/31/2015 RELL COLEMAN MD Ot Z79.899 10/31/2015 RELL COLEMAN MD Ot Z95.2 11/08/2015 RELL COLEMAN MD Ot D69.49 11/08/2015 RELL COLEMAN MD Ot I10 11/08/2015 RELL COLEMAN MD Ot I48.91 11/08/2015 RELL COLEMAN MD Ot Z79.01 11/08/2015 RELL COLEMAN MD Ot Z79.899 11/08/2015 RELL COLEMAN MD Ot Z95.2 12/13/2015 NAYANA MARTINEZ MD Ot Z51.81 ENCOUNTER FOR THERAPEUTIC DRUG LEVEL MON 12/13/2015 NAYANA MARTINEZ MD Ot 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 12/14/2015 RELL COLEMAN MD Ot D69.49 OTHER PRIMARY THROMBOCYTOPENIA 12/14/2015 RELL COLEMAN MD Ot I10 ESSENTIAL (PRIMARY) HYPERTENSION 12/14/2015 RELL COLEMAN MD Ot I48.91 UNSPECIFIED ATRIAL FIBRILLATION 12/14/2015 RELL COLEMAN MD Ot 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 12/14/2015 RELL COLEMAN MD Ot 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81 ENCOUNTER FOR THERAPEUTIC DRUG LEVEL MON 12/31/2015 NAYANA MARTINEZ MD Ot Z79.01 FPC (CURRENT) USE OF ANTICOAGULANT 01/01/2016 NAYANA MARTINEZ MD Ot Z51.81 ENCOUNTER FOR THERAPEUTIC DRUG LEVEL MON 01/01/2016 NAYANA MARTINEZ MD Ot Z79.01 FPC (CURRENT) USE OF ANTICOAGULANT 02/05/2016 RELL COLEMAN MD Ot D69.49 OTHER PRIMARY THROMBOCYTOPENIA 02/05/2016 RELL COLEMAN MD Ot I10 ESSENTIAL (PRIMARY) HYPERTENSION 02/05/2016 RELL COLEMAN MD Ot I48.91 UNSPECIFIED ATRIAL FIBRILLATION 02/05/2016 RELL COLEMAN MD Ot Z79.01 FPC (CURRENT) USE OF ANTICOAGULANT 02/05/2016 RELL COLEMAN MD Ot Z79.899 OTHER FPC (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 THERAPY 02/05/2016 RELL COLEMAN MD Ot Z95.2 PRESENCE OF PROSTHETIC HEART VALVE 02/12/2016 RELL COLEMAN MD, Ot D69.49 OTHER PRIMARY THROMBOCYTOPENIA 02/12/2016 RELL COLEMAN MD Ot I10 ESSENTIAL (PRIMARY) HYPERTENSION 02/12/2016 RELL COLEMAN MD Ot I48.91 UNSPECIFIED ATRIAL FIBRILLATION 02/12/2016 RELL COLEMAN MD, Ot 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 02/12/2016 RELL COLEMAN MD Ot 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 02/12/2016 RELL COLEMAN MD Ot Z95.2 PRESENCE OF PROSTHETIC HEART VALVE 02/21/2016 NAYANA MARTINEZ MD Ot I48.91 UNSPECIFIED ATRIAL FIBRILLATION 02/22/2016 NAYANA MARTINEZ MD Ot I48.91 UNSPECIFIED ATRIAL FIBRILLATION 02/22/2016 NAYANA MARTINEZ MD A Ot I48.91 UNSPECIFIED ATRIAL FIBRILLATION 02/22/2016 NAYANA MARTINEZ MD Ot I48.91 UNSPECIFIED ATRIAL FIBRILLATION 02/22/2016 NAYANA MARTINEZ MD A Ot I48.91 UNSPECIFIED ATRIAL FIBRILLATION 02/22/2016 NAYANA MARTINEZ MD A Ot I48.91 UNSPECIFIED ATRIAL FIBRILLATION 02/22/2016 NAYANA MARTINEZ MD Ot I48.91 UNSPECIFIED ATRIAL FIBRILLATION 03/13/2016 NAYANA MARTINEZ MD Ot I48.91 UNSPECIFIED ATRIAL FIBRILLATION 04/04/2016 RELL COLEMAN MD Ot D69.49 OTHER PRIMARY THROMBOCYTOPENIA 04/04/2016 RELL COLEMAN MD Ot I10 ESSENTIAL (PRIMARY) HYPERTENSION 04/04/2016 RELL COLEMAN MD Ot I48.91 UNSPECIFIED ATRIAL FIBRILLATION 04/04/2016 RELL COLEMAN MD Ot Z79.01 FPC (CURRENT) USE OF ANTICOAGULANT 04/04/2016 RELL COLEMAN MD Ot 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 04/04/2016 RELL COLEMAN MD Ot Z95.2 PRESENCE OF PROSTHETIC HEART VALVE 04/23/2016 RELL COLEMAN MD Ot D69.49 OTHER PRIMARY THROMBOCYTOPENIA 04/23/2016 RELL COLEMAN MD Ot I10 ESSENTIAL (PRIMARY) HYPERTENSION 04/23/2016 RELL COLEMAN MD Ot I48.91 UNSPECIFIED ATRIAL FIBRILLATION 04/23/2016 RELL COLEMAN MD Ot Z79.01 FPC (CURRENT) USE OF ANTICOAGULANT 04/23/2016 RELL COLEMAN MD Ot 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 04/23/2016 RELL COLEMAN MD Ot Z95.2 PRESENCE OF PROSTHETIC HEART VALVE 04/24/2016 NAYANA MARTINEZ MD Ot I48.91 UNSPECIFIED ATRIAL FIBRILLATION 04/30/2016 NAYANA MARTINEZ MD A Ot I48.91 UNSPECIFIED ATRIAL FIBRILLATION 04/30/2016 NAYANA MARTINEZ MD A Ot I48.91 UNSPECIFIED ATRIAL FIBRILLATION 04/30/2016 NAYANA MARTINEZ MD A Ot I48.91 UNSPECIFIED ATRIAL FIBRILLATION 04/30/2016 NAYANA MARTINEZ MD A Ot I48.91 UNSPECIFIED ATRIAL FIBRILLATION 05/14/2016 NAYANA MARTINEZ MD A Ot I48.91 UNSPECIFIED ATRIAL FIBRILLATION 05/20/2016 RELL COLEMAN MD Ot D69.49 OTHER PRIMARY THROMBOCYTOPENIA 05/20/2016 RELL COLEMAN MD Ot I10 ESSENTIAL (PRIMARY) HYPERTENSION 05/20/2016 RELL COLEMAN MD Ot I48.91 UNSPECIFIED ATRIAL FIBRILLATION 05/20/2016 RELL COLEMAN MD Ot Z79.01 FPC (CURRENT) USE OF ANTICOAGULANT 05/20/2016 RELL COLEMAN MD Ot Z79.899 OTHER FPC (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 THERAPY 05/20/2016 RELL COLEMAN MD Ot Z95.2 PRESENCE OF PROSTHETIC HEART VALVE 06/23/2016 RELL COLEMAN MD Ot D69.49 OTHER PRIMARY THROMBOCYTOPENIA 06/23/2016 RELL COLEMAN MD Ot I10 ESSENTIAL (PRIMARY) HYPERTENSION 06/23/2016 RELL COLEMAN MD Ot I48.91 UNSPECIFIED ATRIAL FIBRILLATION 06/23/2016 RELL COLEMAN MD Ot 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 06/23/2016 RELL COLEMAN MD Ot 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 06/23/2016 RELL COLEMAN MD Ot Z95.2 PRESENCE OF PROSTHETIC HEART VALVE 07/01/2016 RELL COLEMAN MD Ot D69.49 OTHER PRIMARY THROMBOCYTOPENIA 07/01/2016 RELL COLEMAN MD Ot I10 ESSENTIAL (PRIMARY) HYPERTENSION 07/01/2016 RELL COLEMAN MD Ot I48.91 UNSPECIFIED ATRIAL FIBRILLATION 07/01/2016 RELL COLEMAN MD Ot 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 07/01/2016 RELL COLEMAN MD Ot Z79.899 OTHER FPC (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 THERAPY 07/01/2016 RELL COLEMAN MD Ot Z95.2 PRESENCE OF PROSTHETIC HEART VALVE 07/04/2016 RELL COLEMAN MD Ot D69.49 OTHER PRIMARY THROMBOCYTOPENIA 07/04/2016 RELL COLEMAN MD Ot I10 ESSENTIAL (PRIMARY) HYPERTENSION 07/04/2016 RELL COLEMAN MD Ot I48.91 UNSPECIFIED ATRIAL FIBRILLATION 07/04/2016 RELL COLEMAN MD Ot Z79.01 FPC (CURRENT) USE OF ANTICOAGULANT 07/04/2016 RELL COLEMAN MD Ot 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 07/04/2016 RELL COLEMAN MD Ot Z95.2 PRESENCE OF PROSTHETIC HEART VALVE 08/21/2016 RELL COLEMAN MD Ot D69.49 OTHER PRIMARY THROMBOCYTOPENIA 08/21/2016 RELL COLEMAN MD Ot I10 ESSENTIAL (PRIMARY) HYPERTENSION 08/21/2016 RELL COLEMAN MD Ot I48.91 UNSPECIFIED ATRIAL FIBRILLATION 08/21/2016 RELL COLEMAN MD Ot 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 08/21/2016 RELL COLEMAN MD Ot 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 08/21/2016 RELL COLEMAN MD Ot Z95.2 PRESENCE OF PROSTHETIC HEART VALVE 09/04/2016 NAYANA MARTINEZ MD Ot I48.91 UNSPECIFIED ATRIAL FIBRILLATION 09/04/2016 NAYANA MARTINEZ MD Ot I48.91 UNSPECIFIED ATRIAL FIBRILLATION 09/04/2016 NAYANA MARTINEZ MD Ot I48.91 UNSPECIFIED ATRIAL FIBRILLATION 09/04/2016 NAYANA MARTINEZ MD Ot I48.91 UNSPECIFIED ATRIAL FIBRILLATION 09/04/2016 JUAN LEGGETT, NAYANA A Ot I48.91 UNSPECIFIED ATRIAL FIBRILLATION 09/05/2016 JUAN LEGGETT, NAYANA A Ot I48.91 UNSPECIFIED ATRIAL FIBRILLATION 09/25/2016 NAYANA MARTINEZ MD Ot I48.91 UNSPECIFIED ATRIAL FIBRILLATION 10/01/2016 RELL COLEMAN MD Ot D69.49 OTHER PRIMARY THROMBOCYTOPENIA 10/01/2016 RELL COLEMAN MD Ot I10 ESSENTIAL (PRIMARY) HYPERTENSION 10/01/2016 RELL COLEMAN MD Ot I48.91 UNSPECIFIED ATRIAL FIBRILLATION 10/01/2016 RELL COLEMAN MD Ot 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 10/01/2016 ERLL COLEMAN MD Ot Z79.899 OTHER FPC (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 THERAPY 10/01/2016 RELL COLEMAN MD Ot Z95.2 PRESENCE OF PROSTHETIC HEART VALVE 11/13/2016 RELL COLEMAN MD Ot D69.49 OTHER PRIMARY THROMBOCYTOPENIA 11/13/2016 RELL COLEMAN MD Ot I10 ESSENTIAL (PRIMARY) HYPERTENSION 11/13/2016 RELL COLEMAN MD Ot I48.91 UNSPECIFIED ATRIAL FIBRILLATION 11/13/2016 RELL COLEMAN MD Ot Z79.01 FPC (CURRENT) USE OF ANTICOAGULANT 11/13/2016 RELL COLEMAN MD Ot Z79.899 OTHER FPC (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 THERAPY 11/13/2016 RELL COLEMAN MD Ot Z95.2 PRESENCE OF PROSTHETIC HEART VALVE 12/15/2016 RELL COLEMAN MD Ot D69.49 OTHER PRIMARY THROMBOCYTOPENIA 12/15/2016 RELL COLEMAN MD Ot I10 ESSENTIAL (PRIMARY) HYPERTENSION 12/15/2016 RELL COLEMAN MD Ot I48.91 UNSPECIFIED ATRIAL FIBRILLATION 12/15/2016 RELL COLEMAN MD Ot Z79.01 FPC (CURRENT) USE OF ANTICOAGULANT 12/15/2016 RELL COLEMAN MD Ot Z79.899 OTHER FPC (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 THERAPY 12/15/2016 RELL COLEMAN MD Ot Z95.2 PRESENCE OF PROSTHETIC HEART VALVE 01/09/2017 RELL COLEMAN MD Ot D69.49 OTHER PRIMARY THROMBOCYTOPENIA 01/09/2017 RELL COLEMAN MD Ot I10 ESSENTIAL (PRIMARY) HYPERTENSION 01/09/2017 RELL COLEMAN MD Ot I48.91 UNSPECIFIED ATRIAL FIBRILLATION 01/09/2017 RELL COLEMAN MD Ot Z79.01 FPC (CURRENT) USE OF ANTICOAGULANT 01/09/2017 RELL COLEMAN MD Ot 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 01/09/2017 RELL COLEMAN MD Ot Z95.2 PRESENCE OF PROSTHETIC HEART VALVE 01/11/2017 RELL COLEMAN MD Ot D69.49 OTHER PRIMARY THROMBOCYTOPENIA 01/11/2017 RELL COLEMAN MD Ot I10 ESSENTIAL (PRIMARY) HYPERTENSION 01/11/2017 RELL COLEMAN MD Ot I48.91 UNSPECIFIED ATRIAL FIBRILLATION 01/11/2017 RELL COLEMAN MD Ot Z79.01 FPC (CURRENT) USE OF ANTICOAGULANT 01/11/2017 RELL COLEMAN MD Ot Z79.899 OTHER FPC (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 THERAPY 01/11/2017 RELL COLEMAN MD Ot Z95.2 PRESENCE OF PROSTHETIC HEART VALVE 01/11/2017 RELL COLEMAN MD Ot D69.49 OTHER PRIMARY THROMBOCYTOPENIA 01/11/2017 RELL COLEMAN MD Ot I10 ESSENTIAL (PRIMARY) HYPERTENSION 01/11/2017 RELL COLEMAN MD Ot I48.91 UNSPECIFIED ATRIAL FIBRILLATION 01/11/2017 RELL COLEMAN MD Ot 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 01/11/2017 RELL COLEMAN MD Ot 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 01/11/2017 RELL COLEMAN MD Ot Z95.2 PRESENCE OF PROSTHETIC HEART VALVE 01/11/2017 RELL COLEMAN MD Ot D69.49 OTHER PRIMARY THROMBOCYTOPENIA 01/11/2017 RELL COLEMAN MD Ot I10 ESSENTIAL (PRIMARY) HYPERTENSION 01/11/2017 RELL COLEMAN MD, Ot I48.91 UNSPECIFIED ATRIAL FIBRILLATION 01/11/2017 RELL COLEMAN MD Ot Z79.01 FPC (CURRENT) USE OF ANTICOAGULANT 01/11/2017 RELL COLEMAN MD Ot Z79.899 OTHER FPC (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 THERAPY 01/11/2017 RELL COLEMAN MD Ot Z95.2 PRESENCE OF PROSTHETIC HEART VALVE 01/11/2017 RELL COLEMAN MD Ot D69.49 OTHER PRIMARY THROMBOCYTOPENIA 01/11/2017 RELL COLEMAN MD Ot I10 ESSENTIAL (PRIMARY) HYPERTENSION 01/11/2017 RELL COLEMAN MD Ot I48.91 UNSPECIFIED ATRIAL FIBRILLATION 01/11/2017 RELL COLEMAN MD Ot Z79.01 FPC (CURRENT) USE OF ANTICOAGULANT 01/11/2017 RELL COLEMAN MD Ot Z79.899 OTHER FPC (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 THERAPY 01/11/2017 RELL COLEMAN MD Ot Z95.2 PRESENCE OF PROSTHETIC HEART VALVE 01/11/2017 RELL COLEMAN MD Ot D69.49 OTHER PRIMARY THROMBOCYTOPENIA 01/11/2017 RELL COLEMAN MD Ot I10 ESSENTIAL (PRIMARY) HYPERTENSION 01/11/2017 RELL COLEMAN MD Ot I48.91 UNSPECIFIED ATRIAL FIBRILLATION 01/11/2017 RELL COLEMAN MD Ot 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 01/11/2017 RELL COLEMAN MD Ot Z79.899 OTHER FPC (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 THERAPY 01/11/2017 RELL COLEMAN MD Ot Z95.2 PRESENCE OF PROSTHETIC HEART VALVE 01/11/2017 RELL COLEMAN MD Ot D69.49 OTHER PRIMARY THROMBOCYTOPENIA 01/11/2017 RELL COLEMAN MD Ot I10 ESSENTIAL (PRIMARY) HYPERTENSION 01/11/2017 RELL COLEMAN MD, Ot I48.91 UNSPECIFIED ATRIAL FIBRILLATION 01/11/2017 RELL COLEMAN MD Ot Z79.01 FPC (CURRENT) USE OF ANTICOAGULANT 01/11/2017 RELL COLEMAN MD, Ot 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 01/11/2017 RELL COLEMAN MD Ot Z95.2 PRESENCE OF PROSTHETIC HEART VALVE 02/10/2017 RELL COLEMAN MD Ot B02.9 ZOSTER WITHOUT COMPLICATIONS 02/10/2017 RELL COLEMAN MD Ot D47.3 ESSENTIAL (HEMORRHAGIC) THROMBOCYTHEMIA 02/10/2017 RELL COLEMAN MD Ot E87.1 HYPO-OSMOLALITY AND HYPONATREMIA 02/10/2017 RELL COLEMAN MD Ot E87.5 HYPERKALEMIA 02/10/2017 RELL COLEMAN MD Ot I11.0 HYPERTENSIVE HEART DISEASE WITH HEART FA 02/10/2017 RELL COLEMAN MD Ot I48.0 PAROXYSMAL ATRIAL FIBRILLATION 02/10/2017 RELL COLEMAN MD Ot I50.22 CHRONIC SYSTOLIC (CONGESTIVE) HEART FAIL 02/10/2017 RELL COLEMAN MD Ot Z79.01 FPC (CURRENT) USE OF ANTICOAGULANT 02/10/2017 RELL COLEMAN MD Ot 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 02/10/2017 RELL COLEMAN MD Ot Z95.2 PRESENCE OF PROSTHETIC HEART VALVE 03/03/2017 Ot 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 THROMBOCYTHEMIA 03/03/2017 Ot 401.9 HYPERTENSION NOS 03/03/2017 Ot 424.0 MITRAL VALVE DISORDER 03/03/2017 Ot 427.31 ATRIAL FIBRILLATION 03/03/2017 Ot V58.61 ANTICOAGULANTS,LT,CURRENT USE 03/03/2017 Ot V58.69 OTH MED,LT,CURRENT USE 03/03/2017 Ot 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 THROMBOCYTHEMIA 03/03/2017 Ot 401.9 HYPERTENSION NOS 03/03/2017 Ot 424.0 MITRAL VALVE DISORDER 03/03/2017 Ot 427.31 ATRIAL FIBRILLATION 03/03/2017 Ot V58.61 ANTICOAGULANTS,LT,CURRENT USE 03/03/2017 Ot V58.69 OTH MED,LT,CURRENT USE 03/03/2017 Ot 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 03/03/2017 Ot 397.0 TRICUSPID VALVE DISEASE 03/03/2017 Ot 401.9 HYPERTENSION NOS 03/03/2017 Ot 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 THROMBOCYTHEMIA 03/03/2017 Ot 401.9 HYPERTENSION NOS 03/03/2017 Ot 424.0 MITRAL VALVE DISORDER 03/03/2017 Ot 427.31 ATRIAL FIBRILLATION 03/03/2017 Ot V58.61 ANTICOAGULANTS,LT,CURRENT USE 03/03/2017 Ot V58.69 OTH MED,LT,CURRENT USE 03/03/2017 Ot 427.31 ATRIAL FIBRILLATION 03/03/2017 Ot 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 THROMBOCYTHEMIA 03/03/2017 Ot 401.9 HYPERTENSION NOS 03/03/2017 Ot 424.0 MITRAL VALVE DISORDER 03/03/2017 Ot 427.31 ATRIAL FIBRILLATION 03/03/2017 Ot V58.61 ANTICOAGULANTS,LT,CURRENT USE 03/03/2017 Ot V58.69 OTH MED,LT,CURRENT USE 03/03/2017 Ot 397.0 TRICUSPID VALVE DISEASE 03/03/2017 Ot 424.0 MITRAL VALVE DISORDER 03/03/2017 Ot 428.0 CONGESTIVE HEART FAILURE NOS 03/03/2017 Ot V45.01 CARDIAC PACEMAKER IN SITU 03/03/2017 Ot 427.31 ATRIAL FIBRILLATION 03/03/2017 BETH ALEXANDER Ot 397.0 TRICUSPID VALVE DISEASE 03/03/2017 BETH ALEXANDER Ot 424.0 MITRAL VALVE DISORDER 03/03/2017 BETH ALEXANDER Ot 427.31 ATRIAL FIBRILLATION 03/03/2017 BETH ALEXANDER Ot 428.0 CONGESTIVE HEART FAILURE NOS 03/03/2017 BETH ALEXANDER Ot 786.09 RESPIRATORY ABNORM NEC 03/03/2017 BETH ALEXANDER Ot V45.01 CARDIAC PACEMAKER IN SITU 03/03/2017 NAYANA MARTINEZ MD Ot 427.31 ATRIAL FIBRILLATION 03/03/2017 NAYANA MARTINEZ MD, Ot V58.61 ANTICOAGULANTS,LT,CURRENT USE 03/03/2017 NAYANA MARTINEZ MD, Ot V58.83 ENCOUNTER FOR THERAPEUTIC DRUG MONITORIN 03/03/2017 NAYANA MARTINEZ MD, Ot 427.31 ATRIAL FIBRILLATION 03/03/2017 NAYANA MARTINEZ MD, Ot Z51.81 ENCOUNTER FOR THERAPEUTIC DRUG LEVEL MON 03/03/2017 NAYANA MARTINEZ MD, Ot Z79.01 FPC (CURRENT) USE OF ANTICOAGULANT 03/03/2017 NAYANA MARTINEZ MD, Ot I48.91 UNSPECIFIED ATRIAL FIBRILLATION 03/03/2017 NAYANA MARTINEZ MD Ot I48.91 UNSPECIFIED ATRIAL FIBRILLATION 03/03/2017 NAYANA MARTNIEZ MD Ot I48.91 UNSPECIFIED ATRIAL FIBRILLATION 03/03/2017 RELL COLEMAN MD Ot D69.49 OTHER PRIMARY THROMBOCYTOPENIA 03/03/2017 RELL COLEMAN MD Ot I10 ESSENTIAL (PRIMARY) HYPERTENSION 03/03/2017 RELL COLEMAN MD Ot I48.91 UNSPECIFIED ATRIAL FIBRILLATION 03/03/2017 RELL COLEMAN MD Ot Z79.01 FPC (CURRENT) USE OF ANTICOAGULANT 03/03/2017 RELL COLEMAN MD Ot Z79.899 OTHER FPC (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 THERAPY 03/03/2017 RELL COLEMAN MD Ot Z95.2 PRESENCE OF PROSTHETIC HEART VALVE 03/04/2017 RELL COLEMAN MD Ot D69.49 OTHER PRIMARY THROMBOCYTOPENIA 03/04/2017 RELL COLEMAN MD Ot I10 ESSENTIAL (PRIMARY) HYPERTENSION 03/04/2017 RELL COLEMAN MD, Ot I48.91 UNSPECIFIED ATRIAL FIBRILLATION 03/04/2017 RELL COLEMAN MD Ot 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 03/04/2017 RELL COLEMAN MD Ot Z79.899 OTHER FPC (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 THERAPY 03/04/2017 RELL COLEMAN MD Ot Z95.2 PRESENCE OF PROSTHETIC HEART VALVE 03/30/2017 BETH ALEXANDER Ot I48.0 PAROXYSMAL ATRIAL FIBRILLATION 04/21/2017 RELL COLEMAN MD, Ot D69.49 OTHER PRIMARY THROMBOCYTOPENIA 04/21/2017 RELL COLEMAN MD, Ot I10 ESSENTIAL (PRIMARY) HYPERTENSION 04/21/2017 RELL COLEMAN MD, Ot I48.91 UNSPECIFIED ATRIAL FIBRILLATION 04/21/2017 RELL COLEMAN MD, Ot 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 04/21/2017 RELL COLEMAN MD, Ot 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 04/21/2017 RELL COLEMAN MD, Ot Z95.2 PRESENCE OF PROSTHETIC HEART VALVE 04/22/2017 BETH ALEXANDER Ot E78.2 MIXED HYPERLIPIDEMIA 04/22/2017 BETH ALEXANDER Ot I08.1 RHEUMATIC DISORDERS OF BOTH MITRAL AND T 04/22/2017 BETH ALEXANDER Ot I10 ESSENTIAL (PRIMARY) HYPERTENSION 04/22/2017 BETH ALEXANDER Ot I48.0 PAROXYSMAL ATRIAL FIBRILLATION 04/22/2017 BETH ALEXANDER Ot I49.5 SICK SINUS SYNDROME 05/05/2017 BETH ALEXANDER Ot E78.2 MIXED HYPERLIPIDEMIA 05/05/2017 BETH ALEXANDER Ot I10 ESSENTIAL (PRIMARY) HYPERTENSION 05/05/2017 BETH ALEXANDER Ot I48.0 PAROXYSMAL ATRIAL FIBRILLATION 05/05/2017 BETH ALEXANDER Ot I49.5 SICK SINUS SYNDROME Procedures Results Test Result Range PT panel in platelet poor plasma by coagulation assay - 04/23/16 09:41 Prothrombin time (PT) in platelet poor plasma by coagulation assay 24.0 s 12.2-14.7 INR in platelet poor plasma or blood by coagulation assay 2.2 0.8-1.4 PT panel in platelet poor plasma by coagulation assay - 09/04/16 10:53 Prothrombin time (PT) in platelet poor plasma by coagulation assay 16.6 s 12.2-14.7 INR in platelet poor plasma or blood by coagulation assay 1.4 0.8-1.4 Encounters ACCT No. Visit Date/Time Discharge Status Pt. Type Provider Facility Loc./Unit Complaint [id number] 08/07/2014 14:31:51 08/07/2014 23: 59:59 CLS Outpatient Lucho Ryan [id number] 03/03/2017 14:31:00 2016 11:01:00 DIS Outpatient RELL COLEMAN MD [facility] ONC [id number] 04/29/2017 11:16:00 2016 23:59:59 CLS Outpatient BETH ALEXANDER [facility] CARD HYPERLIPIDEMIA,HYPERTENSION ,PAF,SSS [id number] 04/01/2017 09:30:00 2016 23:59:59 CLS Outpatient BETH ALEXANDER [facility] CARD HYPERLIPIDEMIA,HYPERTENSION ,PAF,SSS [id number] 01/06/2017 09:40:00 2016 00:01:00 DIS Outpatient RELL COLEMAN MD [facility] ONC [id number] 09/04/2016 10:42:00 2016 00:01:00 DIS Outpatient RELL COLEMAN MD [facility] ONC [id number] 09/04/2016 10:56:00 2016 23:59:59 CLS Outpatient NAYANA MARTINEZ MD [facility] LAB [id number] 04/23/2016 09:29:00 2015 00:01:00 DIS Outpatient RELL COLEMAN MD [facility] ONC [id number] 04/23/2016 09:45:00 2015 23:59:59 CLS Outpatient NAYANA MARTINEZ MD [facility] LAB [id number] 02/20/2016 09:45:00 2015 23:59:59 CLS Outpatient NAYANA MARTINEZ MD [facility] LAB [id number] 12/12/2015 09:16:00 2015 00:01:00 DIS Outpatient RELL COLEMAN MD [facility] ONC [id number] 12/12/2015 09:26:00 2015 23:59:59 CLS Outpatient NAYANA MARTINEZ MD [facility] LAB [id number] 08/28/2015 09:03:00 2015 00:01:00 DIS Outpatient RELL COLEMAN MD [facility] ONC [id number] 04/17/2015 10:11:00 2014 00:01:00 DIS Outpatient RELL COLEMAN MD [facility] ONC [id number] 04/17/2015 10:41:00 2014 23:59:59 CLS Outpatient NAYANA MARTINEZ MD [facility] LAB [id number] 01/17/2015 13:44:00 2014 00:01:00 DIS Outpatient RELL COLEMAN MD [facility] ONC [id number] 09/12/2014 10:30:00 2014 23:59:59 CLS Outpatient NAYANA MARTINEZ MD [facility] LAB [id number] 09/12/2014 10:14:00 2014 23:59:59 CLS Outpatient RELL COLEMAN MD [facility] ONC [id number] 05/17/2014 10:28:00 2013 00:01:00 DIS Outpatient RELL COLEMAN MD [facility] ONC [id number] 01/25/2014 13:29:00 2013 00:01:00 DIS Outpatient RELL COLEMAN MD [facility] ONC [id number] 09/29/2013 10:31:00 2013 00:01:00 DIS Outpatient RELL COLEMAN MD [facility] ONC [id number] 07/05/2013 10:57:00 2012 23:59:59 CLS Outpatient NAYANA MARTINEZ MD [facility] LAB [id number] 05/05/2013 10:47:00 2012 00:01:00 DIS Outpatient RELL COLEMAN MD [facility] ONC [id number] 12/29/2012 09:45:00 2012 00:01:00 DIS Outpatient RELL COLEMAN MD [facility] ONC [id number] 01/03/2013 07:36:00 2012 23:59:59 CLS Outpatient BETH ALEXANDER [facility] RAD SEVERE MR,TR,CHF,DYSPNEA [id number] 05/13/2017 10:00:00 PEN Preadmit BETTY RIVERA MD [facility] CATH ABN STRESS TEST [id number] 05/12/2017 12:22:00 ACT Outpatient KATHLEEN ROYAL [place] [facility] ONC [id number] 12/10/2012 13:18:00 Document Registration [id number] 10/13/2012 10:39:00 Document Registration [id number] 08/11/2012 10:16:00 Document Registration [id number] 04/14/2012 09:52:00 Document Registration [id number] 02/12/2012 09:57:00 Document Registration [id number] 02/12/2012 09:08:00 Document Registration [id number] 12/29/2011 12:56:00 Document Registration [id number] 12/16/2011 09:05:00 Document Registration [id number] 10/21/2011 09:43:00 Document Registration [id number] 08/14/2011 12:36:00 Document Registration [id number] 06/12/2011 13:20:00 Document Registration [id number] 04/17/2011 13:13:00 Document Registration [id number] 04/02/2011 08:40:00 Document Registration [id number] 03/25/2011 10:42:00 Document Registration [id number] 02/19/2011 08:47:00 Document Registration [id number] 12/25/2010 09:20:00 Document Registration [id number] 11/13/2010 10:18:00 Document Registration [id number] 09/18/2010 09:15:00 Document Registration [id number] 08/06/2010 09:51:00 Document Registration [id number] 07/16/2010 10:19:00 Document Registration [id number] 07/16/2010 09:52:00 Document Registration [id number] 07/02/2010 08:30:00 Document Registration [id number] 06/24/2010 08:45:00 Document Registration [id number] 10/24/2009 13:02:00 Document Registration [id number] 10/15/2009 10:07:00 Document Registration
[2017-05-13] MEDS ORDERED: NS IV 1000 ML 1,000 ML IV SCH ×2 (07:30→11:10)
[2017-05-13 07:54] LABS: MEAN PLATELET VOLUME 9.7 FL (7.4-10.4); RED BLOOD COUNT 3.46 10^6/uL (4.35-5.85)
[2017-05-13 07:55] LABS: BILIRUBIN,URINE NEGATIVE (NEGATIVE); KETONES,URINE NEGATIVE (NEGATIVE); LEUKOCYTE ESTERASE ,URINE 3+ (NEGATIVE); NITRITE,URINE NEGATIVE (NEGATIVE); PH,URINE 7 (5-9); PROTEIN,URINE 1+ (NEGATIVE); UROBILINOGEN,URINE 4 MG/DL (NORMAL)
[2017-05-13 08:04] LABS: INR 1.1 (0.8-1.4); PROTHROMBIN TIME PATIENT 14.7 SEC (12.2-14.7)
[2017-05-13 08:05] LABS: WBC,URINE >100 /HPF
[2017-05-13 08:13] LABS: ALANINE AMINOTRANSFERASE 23 U/L (0-55); ANION GAP 8 MMOL/L (5-14); ASPARTATE AMINO TRANSFERASE 30 U/L (5-34); BLOOD UREA NITROGEN 18 MG/DL (7-18); BUN/CREATININE RATIO 22; CALCIUM 9.4 MG/DL (8.5-10.1); CARBON DIOXIDE 25 MMOL/L (21-32); CHLORIDE 100 MMOL/L (98-107); CHOLESTEROL 153 MG/DL (< 200); CREATININE SERUM 0.82 MG/DL (0.60-1.30); DIRECT LDL 107 MG/DL (1-129); GFR ESTIMATED > 60; GLUCOSE 96 MG/DL (70-105); POTASSIUM 3.8 MMOL/L (3.6-5.0); SODIUM 133 MMOL/L (135-145); TOTAL PROTEIN 7.4 GM/DL (6.4-8.2); TRIGLYCERIDES 76 MG/DL (<150); VLDL CHOLESTEROL 15 MG/DL (5-40)
--- NOTE | 2017-05-13 08:17 | Diagnostic Imaging Report ---
INDICATION: Preop evaluation. History of previous heart catheterization. Pacemaker. TECHNIQUE: Single view chest 7:37 AM. CORRELATION STUDY: 04/02/2011 FINDINGS: Left-sided unipolar pacemaker is stable. There is a cardiac enlargement has increased from prior study. Vasculature is within normal limits. Lung parenchyma overall relatively clear without definitive infiltrate. Asymmetric eventration of right diaphragm. IMPRESSION: 1. At least moderate severity cardiac enlargement which has increased slightly since prior study with evidence for overt failure. Underlying cardiomyopathy versus pericardial effusion could give this appearance. Dictated by: Dictated on workstation # [id number]
[2017-05-13] MEDS ORDERED: PHEN95TA30 PO (08:38)
[2017-05-13] MEDS ORDERED: DIGO125T PO (08:38)
[2017-05-13] MEDS ORDERED: ARCTIC RUBY OIL PO (08:38)
[2017-05-13] MEDS ORDERED: CARB15DR3 OU (08:38)
[2017-05-13] MEDS ORDERED: [UNRECOGNIZED DRUG - OTHER] PO (08:38)
[2017-05-13] MEDS ORDERED: MELA1TAB8 PO (08:38)
[2017-05-13] MEDS ORDERED: ENAL2.5T PO (08:38)
[2017-05-13] MEDS ORDERED: PRAM1TAB2 PO (08:38)
[2017-05-13] MEDS ORDERED: SPIR25TA PO (08:38)
[2017-05-13] MEDS ORDERED: HYDR500C2 PO ×2 (08:38)
[2017-05-13] MEDS ORDERED: METO-274 PO (08:38)
[2017-05-13] MEDS ORDERED: CALC100T2 PO (08:38)
[2017-05-13] MEDS ORDERED: ASPI-983 PO (08:38)
[2017-05-13] MEDS ORDERED: MAGN400T6 PO (08:38)
[2017-05-13] MEDS ORDERED: NITR0.4T SL (08:38)
[2017-05-13] MEDS ORDERED: FURO40TA4 PO (08:38)
[2017-05-13] MEDS ORDERED: WARF-48 PO ×2 (08:38)
[2017-05-13] MEDS ORDERED: fentaNYL INJECTION 100 MCG/2 ML AMP ONE (10:12)
[2017-05-13] MEDS ORDERED: MIDAZOLAM 5 MG/5 ML (VERSED) VIAL ONE (10:12)
[2017-05-13] MEDS ORDERED: VERAPAMIL 5 MG/2 ML (CALAN) VIAL IV ONE (10:13)
[2017-05-13] MEDS ORDERED: NITROGLYCERIN DRIP 25 MG/D5W 250 ML IV ONE (10:13)
[2017-05-13] MEDS ORDERED: HEParin 1000 UNIT/ML (10ML VIAL) FOR BOLUS ONE (10:13)
--- NOTE | 2017-05-13 10:18 | Cardiac Procedure Note-CS/ASA ---
Pre-Procedure Note Pre-Op Procedure Note H&P Reviewed The H&P was reviewed, patient examined and no changes noted. Date H&P Reviewed: May 13, 2017 Time H&P Reviewed: 10:18 Conscious Sedation Pre-Proced Time Reviewed: 10:18 ASA Class: 3 Airway Mallampati Classification: (la posta appropriate class) I. II. III, IV Lungs Heart ASA score ASA 1: a normal healthy patient ASA 2: a patient with a mild systemic disease (mid diabetes, controlled hypertension, obesity x ASA 3: a patient with a severe systemic disease that limits activity (angina , COPD, prior Myocardial infarction) ASA 4: a patient with an incapacitating disease that is a constant threat to life (CHF, renal failure) ASA 5: a moribund patient not expected to survive 24 hrs. (ruptured aneurysm) ASA 6: a declared brain patient whose organs are being harvested. For emergent operations, add the letter E after the classification Grade 3 Sedation Plan: Analgesia, Amnesia, Plan communicated to team members, Discussed options with patient/fam, Discussed risks with patient/fam Note The patient is an appropriate candidate to undergo the planned procedure, sedation, and anesthesia. The patient immediately re-assessed prior to indication. BETTY RIVERA MD May 13, 2017 10:18
[2017-05-13] MEDS ORDERED: PATIENT MAY USE OWN MEDS, ALL PO SCH (11:15)
--- NOTE | 2017-05-13 11:15 | Cardiac Cath Report ---
Cardiac Cath Report Physician (s)/Private Advisor (s) Physician BETTY RIVERA MD Pre-Procedure Diagnosis Pre-Procedure Diagnosis: coronary artery disease Post-Procedure Note Procedure Start Date: May 13, 2017 Procedure Start Time: 11:12 Name of Procedure: left heart catheterization Findings/Procedure Note PROCEDURE NOTE: After explaining the procedure to the patient, all pros and cons were explained, all questions were answered. The patient signed the consent and then she was placed on the cardiac catheterization laboratory. The patient was placed on the cardiac catheterization laboratory. Groin and wrist were prepped SL fashion local anesthesia was used. Local anesthesia applied to the right wrist, 5 Slovak sheath was placed in the right radial artery without difficulties Cherelle catheter was used for the procedure intubation of selective coronary angiogram then prolapsing the catheter to the left ventricular cavity and left ventriculogram was done, pullback LV to aorta was done. At the end of the procedure sheath was removed and manual pressure applied FINDINGS: Hemodynamics LV 100/13 and diastolic pressure of 13 Aorta 108/49 mean of 57 ANATOMY: Left Main is free of obstructive disease Left Anterior Descending has 40 percent proximal stenosis nonobstructive disease Left Circumflex has mild disease nonobstructive disease Right Coronory Artery has mild disease nonobstructive disease LV Gram is normal in size with normal contractility estimated ejection fraction 60 percent Aorta was not done CONCLUSION: 1. Mild coronary artery disease, 40 percent proximal LAD otherwise nonobstructive disease 2. Normal left ventricular size with normal contractility estimated ejection fraction 60 percent DISCUSSION AND RECOMMENDATION: I will continue medical therapy no intervention is weren't Anesthesia Type: Conscious Sedation Estimated blood loss (mL): 5 ml Contrast Amount: 44 ml Total Radiation Dose: 105 mGy Post-Procedure Diagnosis Post-operative diagnosis: Coronary artery disease Hypertension Hyperlipidemia BETTY RIVERA MD May 13, 2017 11:15
== END 2017-05-13 15:08 | disposition home or self-care (01) ==
LOC: CATH 06:52 → SURG 11:30 → CATH 15:08
PROVIDERS: ATTEND Internal Medicine Cardiovascular Disease
DX: I25.10 Atherosclerotic heart disease of native coronary artery without angina pectoris (principal); E78.5 Hyperlipidemia, unspecified; I10 Essential (primary) hypertension; I50.22 Chronic systolic (congestive) heart failure; I48.0 Paroxysmal atrial fibrillation; R07.89 Other chest pain; I49.5 Sick sinus syndrome; I34.0 Nonrheumatic mitral (valve) insufficiency; I27.2 Other secondary pulmonary hypertension; Z79.01 Long term (current) use of anticoagulants; Z79.899 Other long term (current) drug therapy; Z95.0 Presence of cardiac pacemaker
CPT/HCPCS: 36415; 71010; 80053; 80061; 81000; 85027; 85610; 85730; 87081; 87088; 93458